=== PATIENT | female | born 1955 | race Caucasian/White ===

== ENCOUNTER 2017-04-09 07:08 | Emergency (ER) | payer OTHER ==
[~2017-04-09] VITALS: Ht 162.6 cm; Wt 116.5 kg
[2017-04-09 07:16] VITALS: BP 170/98; PULSE 83; RESP 16; TEMP 98.9; O2SAT 95
[2017-04-09] MEDS ORDERED: ROSU1TAB6 PO (07:54)
[2017-04-09] MEDS ORDERED: VITA100064 PO (07:54)
[2017-04-09] MEDS ORDERED: CHLO25TA2 PO (07:54)
[2017-04-09] MEDS ORDERED: LISI10TA3 PO (07:54)
[2017-04-09] MEDS ORDERED: CITA10TA4 PO (07:54)
[2017-04-09] MEDS ORDERED: COQ-30CA2 PO (07:54)
[2017-04-09] MEDS ORDERED: ALBI1INJ SQ (07:54)
[2017-04-09] MEDS ORDERED: INSU1INJ5 SQ (07:54)
[2017-04-09] MEDS ORDERED: METF1000 PO (07:54)
[2017-04-09] MEDS ORDERED: COQ-50CA2 (07:54)
--- NOTE | 2017-04-09 08:09 | RADRPT ---
EXAM DATE/TIME: 04/09/2017 07:39 [place] COMPARISON: No previous studies available for comparison. INDICATIONS : Flu like symptoms x 3 days. MEDICAL HISTORY : Hypertension. Hypercholesterolemia. Diabetes mellitus type II. Renal calculi. Inguinal hernia. SURGICAL HISTORY : None. ENCOUNTER: Initial ACUITY: 3 days PAIN SCORE: 0/10 LOCATION: chest FINDINGS: PA and lateral views of the chest demonstrate the lungs to be symmetrically aerated without evidence of mass, infiltrate or effusion. The cardiomediastinal contours are unremarkable. Osseous structure s are intact. CONCLUSION: No acute disease. Shiva Sanches Jr., MD on April 09, 2017 at 7:58 Board Certified Radiologist. This report was verified electronically.
--- NOTE | 2017-04-09 08:19 | PD ---
HPI Chief Complaint: Cold / Flu Symptoms Time Seen by Provider: 07:16 Travel History International Travel<30 days: No Contact w/Intl Traveler<30days: No Traveled to known affect area: No History of Present Illness HPI This is a 61-year-old female who presents for cough and congestion. She states that 3 days ago, she developed mild nasal congestion. She thought this might be her allergies. Overnight, she states that she developed cough and some chills and body aches. She last took ibuprofen yesterday. No definite fever at home. No associated nausea, vomiting, diarrhea. No headache, rash, neck pain or stiffness. Symptoms are mild in severity. Onset gradual. Alleviated partially by ibuprofen. No difficulty breathing, speaking, swallowing. PFSH Past Medical History Depression: Yes Cardiovascular Problems: Yes (htn on meds) High Cholesterol: Yes Diabetes: Yes (type 2 and takes insulin) Patient Takes Glucophage: Yes Hypertension: Yes Inguinal Hernia: Yes Kidney Stones: Yes Tetanus Vaccination: < 5 Years Influenza Vaccination: Yes ?: Not Social History Alcohol Use: No Tobacco Use: No Substance Use: No Allergies-Medications (Allergen,Severity, Reaction): Coded Allergies: promethazine (Verified Allergy, Intermediate, restless, 04/09/17) Reported Meds & Prescriptions Reported Meds & Active Scripts Active Reported Rosuvastatin (Rosuvastatin Calcium) 10 Mg Tab 10 Mg PO DAILY Vitamin D3 (Cholecalciferol) 1,000 Unit Tab 1,000 Units PO DAILY Coq-10 (Coenzyme Q10 (Ubidecarenone)) 50 Mg Cap Coq-10 (Coenzyme Q10 (Ubidecarenone)) 30 Mg Cap 100 Mg PO DAILY Chlorthalidone 25 Mg Tab 25 Mg PO DAILY Metformin (Metformin HCl) 1,000 Mg Tab 1,000 Mg PO BIDPC Citalopram (Citalopram Hydrobromide) 10 Mg Tab 10 Mg PO DAILY Lisinopril 10 Mg Tab 10 Mg PO DAILY Tanzeum 4-Pack Inj (Albiglutide) 30 Mg Pfpen 30 Mg SQ Q7D Levemir Flextouch Pen Inj (Insulin Detemir) 300 unit/3 ML Pen 52 Units SQ HS Review of Systems Except as stated in HPI: all other systems reviewed are Neg Physical Exam Narrative GENERAL: Alert, well nourished, well appearing patient resting on the bed in no acute distress. Vital Signs reviewed SKIN: Focused skin assessment warm/dry. HEAD: Atraumatic. Normocephalic. EYES: Pupils equal and round. No scleral icterus. No injection or drainage. ENT: No nasal bleeding or discharge. Mucous membranes pink and moist. TMs are clear bilaterally. No tenderness over the mastoids. Posterior oropharynx with no erythema, edema, exudate. Uvula is midline. NECK: Trachea midline. No JVD. Spontaneous, painless full range of motion with no meningismus CARDIOVASCULAR: Regular rate and rhythm. No murmur appreciated. Extremities warm and well perfused with bounding peripheral pulses RESPIRATORY: No accessory muscle use. Clear to auscultation. Breath sounds equal bilaterally. Breathing easily and speaking in full sentences GASTROINTESTINAL: Abdomen soft, non-tender, nondistended. Normal bowel sounds. No rigid, rebound, guarding MUSCULOSKELETAL: No obvious deformities. No clubbing. No cyanosis. No edema. Compartments are soft NEUROLOGICAL: Awake and alert. No obvious cranial nerve deficits. Motor grossly within normal limits. Normal speech. Sensation intact. Normal gait Data Data Last Documented VS Vital Signs Date Time Temp Pulse Resp B/P (MAP) Pulse Ox O2 Delivery O2 Flow Rate FiO2 04/09/17 07:28 Room Air 04/09/17 07:16 98.9 83 16 170/98 (122) 95 Orders Orders Group A Rapid Strep Screen (04/09/17 07:29) Influenzae A/B Antigen (04/09/17 07:29) Chest, Pa & Lat (04/09/17 07:29) Strep Culture (Group A) (04/09/17 07:35) MDM Medical Decision Making Medical Screen Exam Complete: Yes Emergency Medical Condition: Yes Medical Record Reviewed: Yes Interpretation(s) Last 24 hours Impressions Chest X-Ray 04/09/17 0729 Signed Impressions: Service Date/Time: Sunday, April 09, 2017 07:39 - CONCLUSION: No acute disease. Shiva Sanches Jr., MD Date/Time Source Procedure Growth Status 04/09/17 07:35 Throat Group A Streptococcus Screen Pending Received 04/09/17 07:35 Nasal Washing Influenza Types A,B Antigen ([facility]) - Final NEGATIVE FOR FLU A AND B ANTIGEN.... Complete 04/09/17 07:35 Throat Group A Streptococcus Screen ([facility]) - Final Complete Differential Diagnosis , Upper respiratory infection, bronchitis, influenza, pharyngitis, pneumonia Narrative Course The patient appears very well. She is breathing easily and speaking in full sentences. She is afebrile and not tachycardic. Influenza, rapid strep and chest x-ray are unremarkable. I do not feel the patient would benefit from antibiotics at this time. I reviewed the results of the workup with the patient and plan. Plan for discharge with supportive care and close outpatient follow-up. Patient understands the importance of close outpatient follow-up. She understands she may require further testing and treatment as an outpatient. She understands strict return indications. She is comfortable with this plan and eager to go home. Diagnosis Primary Impression: Upper respiratory infection Qualified Codes: J06.9 - Acute upper respiratory infection, unspecified Referrals: Primary Care Physician 2 days Patient Instructions: General Instructions, Upper Respiratory Infection (ED) Additional Instructions: Drink plenty of fluids to stay well hydrated. Okay to use Tylenol and ibuprofen as needed for fever or pain. Follow-up with primary physician in 2 days for recheck. You may require further testing and treatment as an outpatient. Return with worsening symptoms. Med/Other Pt SpecificInfo: No Change to Meds Disposition: 01 DISCHARGE HOME Condition: Stable Haylee Palmer MD Apr 09, 2017 08:19
== END 2017-04-09 08:41 | disposition home or self-care (01) ==
LOC: PHED 07:08
DX: J06.9 Acute upper respiratory infection, unspecified (principal); F32.9 Major depressive disorder, single episode, unspecified; I10 Essential (primary) hypertension; E11.9 Type 2 diabetes mellitus without complications; E78.00 Pure hypercholesterolemia, unspecified; Z88.8 Allergy status to other drugs, medicaments and biological substances; Z79.4 Long term (current) use of insulin
CPT/HCPCS: 71046; 87081; 87804; 87880; 99284